=== PATIENT | female | born 1990 | race Caucasian/White ===

== ENCOUNTER 2017-10-27 08:42 | Emergency (ER) | payer OTHER ==
--- NOTE | 2017-10-27 09:50 | OBDCSUM ---
Datetime: 10/27/2017 09:37 Discharged to, Provider: Home Follow up at, Provider: Private MD today Disch Instr Activity: Normal activity Disch Instr Diet: Regular Discharge Instructions, Provider: Routine instructions given Discharge Diagnosis, Provider: False Labor - Undelivered Discharge Time: 10/27/2017 09:50 Disch Referrals: None Discharge Comment, Provider: early latent labor SVE: 3 Category 1 tracing, reactive NST labor precautions, kickcounts [facility]
--- NOTE | 2017-10-27 09:50 | OBADHP ---
Datetime: 10/27/2017 09:30 IP Adm Impression Other: early latent labor Admit Comment, IP Provider: at 38w4d here for bloody show, contractions and perseived decreased movement. Patient reports she had an ultrasound yesterday and it was normal. She feels the baby with tightening of the abdomen and she can't tell if it's baby or just the abdo men. This morning in the shower she noticed blood and spotting over night with intermittend contraction s. PNC: [facility] [phone] PNI: GBS + -threatened PTL once and intermittent contractions since 27wks PMHX: -ovarian cyst -endometriosis PGYNhx: -denies STI -abn pap in past, s/p colpo, told to repeat in 3 yrs PShx: -appendectomy -neurofibroma removal of thumb Social hx: -denies DV or toxic habits All: NKDA Meds: none see exam above A/P: early latent labor at term -reassuring and maternal status -labor precautions given -pt s/p u/s yesterday reassuring -pt would like to deliver at [facility] -if membranes ruptured pt aware to get abx - kickcounts discussed, pt has movement here -DC home Pelvic Type - PN: Adequate Extremities - PN: Normal Abdomen - PN: Normal Lungs - PN: Normal Heart - PN: Normal General - PN: Normal FHR - Baseline A Provider: 140 Membranes, Provider: Intact Contraction Comments Provider: q7 min Vital Signs Provider: Reviewed; Within Normal Limits IP Chief Complaint: Uterine contractions; Vaginal bleeding; evaluation NICHD Variability Prov Fetus A: Moderate 6-25bpm NICHD Accel Fetus A IP Provider: [id number] FHR Category Provider Fetus A: Category I NICHD Decel Fetus A IP Provider: None Dilatation, Provider: 1 Effacement, Provider: 90 Station, Provider: -3 Genitourinary Exam: Normal EGA AdmitDate IP: 38.1 IP Adm Impression: Term, intrauterine IP Admit Plan: Discharge home
[2017-10-27 14:06] VITALS: BP 123/77; PULSE 73; RESP 18; TEMP 98.4; O2SAT 99
== END 2017-10-27 09:50 | disposition home or self-care (01) ==
LOC: H.EROB2 08:42
DX: O26.853 Spotting complicating pregnancy, third trimester (principal); Z3A.38 38 weeks gestation of pregnancy; O26.93 Pregnancy related conditions, unspecified, third trimester; R10.2 Pelvic and perineal pain